=== PATIENT | female | born 1985 | race Two or more races ===

== ENCOUNTER 2016-05-11 08:34 | Emergency (ER) | payer OTHER ==
[~2016-05-11] VITALS: Ht 157.5 cm; Wt 65.8 kg
[~2016-05-11 08:34] MED LIST: DOCU-27 PO; Hydrocodone/Acetaminophen PO; METH10TA2 PO; ONDA4TAB10 SL; Polyethylene Glycol 3350 PO
[2016-05-11 08:47] VITALS: BP 129/71
[2016-05-11] MEDS ORDERED: ACETAMINOPHEN 500 MG TABLET PO ONE (09:00)
--- NOTE | 2016-05-11 09:02 | PHYS DOC ---
Past Medical History Past Medical History: UTI, Other Additional Past Medical Histor: substance abuse Past Surgical History: , Hysterectomy Alcohol Use: None Drug Use: Methamphetamine Adult General Chief Complaint Chief Complaint: BLOOD IN URINE HPI HPI Patient is a 31 year old female who presents with hematuria. Patient reports for the past few days she has been experiencing dysuria. She assumed she had a UTI, so she increased the amount of water she was drinking in an attempt to "flush it out". She felt a little better yesterday, but then this morning she noticed blood in her urine and increased dysuria. No flank or back pain. No fever. She has not taken anything for symptoms at home other than increased fluid intake. Review of Systems Review of Systems Constitutional: Denies fever or chills Respiratory: Denies cough or shortness of breath Cardiovascular: Denies chest pain GI: Denies abdominal pain, nausea, vomiting, bloody stools or diarrhea : Dysuria, hematuria Musculoskeletal: Denies back pain or joint pain Integument: Denies rash or skin lesions Neurologic: Denies headache, focal weakness or sensory changes Current Medications Current Medications Current Medications Medications (Trade) Dose Ordered Sig/John Start Time Stop Time Status Last Admin Dose Admin Acetaminophen (Tylenol) 1,000 mg 1X ONCE 05/11/16 09:00 05/11/16 09:01 DC 05/11/16 08:52 1,000 MG Trimethoprim/ Sulfamethoxazole (Bactrim Ds) 1 tab 1X ONCE 05/11/16 09:30 05/11/16 09:31 DC 05/11/16 09:28 1 TAB Allergies Allergies Allergies Coded Allergies Type Severity Reaction Last Updated Verified No Known Drug Allergies 03/30/14 No Physical Exam Physical Exam Constitutional: Well developed, well nourished, no acute distress, non-toxic appearance HENT: Normocephalic, atraumatic, bilateral external ears normal Eyes: EOMI, conjunctiva normal, no discharge Neck: Normal range of motion, no stridor Cardiovascular: Heart rate normal, regular rhythm, no murmur Lungs & Thorax: Bilateral breath sounds clear to auscultation Abdomen: Bowel sounds normal, soft, non-distended, suprapubic TTP without guarding or rebound Skin: Warm, dry, no erythema, no rash Back: No CVA tenderness Extremities: No obvious deformity, no edema Neurologic: Alert and oriented X 3, no gross deficits noted Current Patient Data Vital Signs Vital Signs Date Time Temp Pulse Resp B/P Pulse Ox O2 Delivery O2 Flow Rate FiO2 05/11/16 08:47 98.2 100 20 100 Room Air 98.2 Lab Values Laboratory Tests Test 05/11/16 09:00 Urine Collection Type Unknown Urine Color Red Urine Clarity Cloudy Urine pH 7.0 Urine Specific [place] 1.020 Urine Protein 100mg/dL (NEG-TRACE) Urine Glucose (UA) Negativemg/dL (NEG) Urine Ketones (Stick) Negativemg/dL (NEG) Urine Blood Large (NEG) Urine Nitrite Negative (NEG) Urine Bilirubin Negative (NEG) Urine Urobilinogen Dipstick 1.0mg/dL (0.2 mg/dL) Urine Leukocyte Esterase Large (NEG) Urine RBC >40/HPF (0-2) Urine WBC 11-20/HPF (0-4) Urine Bacteria 0/HPF (0-FEW) EKG EKG [] Radiology/Procedures Radiology/Procedures [] Course & Med Decision Making Course & Med Decision Making Pertinent Labs and Imaging studies reviewed. (See chart for details) Patient is 31 year old female who presents with hematuria and dysuria. Suspect UTI. Will check UA; has had hysterectomy so will not check urine preg screen. Dose of acetaminophen ordered for pain control. UA shows likely UTI. Discussed results with patient. Dose of bactrim ordered for ED. Will discharge home with rx for bactrim and pyridium, instructions for follow up, return precautions. Dragon Disclaimer Dragon Disclaimer This electronic medical record was generated, in whole or in part, using a voice recognition dictation system. Departure Departure Impression: Primary Impression: UTI (urinary tract infection) Disposition: 01 HOME, SELF-CARE Condition: STABLE Referrals: NO PCP (PCP) Patient Instructions: Urinary Tract Infection Additional Instructions: Thank you for allowing us to provide care today in the Emergency Department. Take the provided medication as directed. Schedule a follow up appointment with your primary care doctor. Return promptly to the Emergency Department if you develop any new or concerning symptoms. Scripts Phenazopyridine Hcl (Pyridium)200 Mg [id number] Mg PO TID #6 TAB Prov:SANJUANA MONROE MD 05/11/16 Sulfamethoxazole/Trimethoprim (Bactrim Ds Tablet)1 Each Tablet1 Tab PO BID #10 TAB Prov:SANJUANA MONROE MD 05/11/16 SANJUANA MONROE MD May 11, 2016 09:02
[2016-05-11 09:13] LABS: BILIRUBIN,URINE NEGATIVE (NEG); GLUCOSE,URINE NEGATIVE (NEG); NITRITE,URINE NEGATIVE (NEG); PROTEIN,URINE 100 mg/dL (NEG-TRACE)
[2016-05-11 09:18] LABS: BACTERIA,URINE 0 /HPF (0-FEW); RBC,URINE >40 /HPF (0-2)
[2016-05-11] MEDS ORDERED: PHEN-318 PO (09:27)
[2016-05-11] MEDS ORDERED: SULF1TAB24 PO (09:27)
[2016-05-11] MEDS ORDERED: SMZ/TMP 800/160MG TABLET. PO ONE (09:30)
== END 2016-05-11 09:35 | disposition home or self-care (01) ==
LOC: ER 08:34
DX: N39.0 Urinary tract infection, site not specified (principal); F15.10 Other stimulant abuse, uncomplicated; Z90.710 Acquired absence of both cervix and uterus; Z98.890 Other specified postprocedural states
CPT/HCPCS: 81001; 87086; 99284

== ENCOUNTER 2016-10-22 10:37 | Emergency (ER) | payer OTHER ==
[~2016-10-22] VITALS: Ht 157.5 cm; Wt 65.8 kg
[~2016-10-22 10:37] MED LIST changes: +DOCU-109 PO; -DOCU-27 PO; +PHEN-318 PO; +SULF1TAB24 PO
[2016-10-22 11:05] LABS: BILIRUBIN,URINE NEGATIVE (NEG); GLUCOSE,URINE NEGATIVE (NEG); NITRITE,URINE NEGATIVE (NEG); PH,URINE 6.5; PROTEIN,URINE NEGATIVE (NEG-TRACE); UROBILINOGEN,URINE 0.2 mg/dL (0.2 mg/dL)
[2016-10-22 11:08] LABS: BACTERIA,URINE MODERATE /HPF (0-FEW); RBC,URINE 0 /HPF (0-2); SQUAMOUS EPITHELIAL CELL,UR MOD /LPF; WBC,URINE OCC /HPF (0-4)
[2016-10-22 11:18] LABS: BASO % 0 % (0-3); EOS % 2 % (0-3); HEMATOCRIT 41.7 % (36.0-47.0); HEMOGLOBIN 14.1 g/dL (12.0-15.5); LYMPH # 2.7 x10^3/uL (1.0-4.8); LYMPH % 29 % (24-48); MEAN CORPUSCULAR HEMOGLOBIN 31 pg (25-35); MEAN CORPUSCULAR HGB CONC 34 g/dL (31-37); MEAN CORPUSCULAR VOLUME 91 fL (79-100); MONO % 6 % (0-9); NEUT % 63 % (31-73); PLATELET COUNT 312 x10^3/uL (140-400); RED BLOOD COUNT 4.57 x10^6/uL (3.50-5.40); RED CELL DISTRIBUTION WIDTH 13.4 % (11.5-14.5); WHITE BLOOD COUNT 9.5 x10^3/uL (4.0-11.0)
--- NOTE | 2016-10-22 11:40 | PHYS DOC ---
Past Medical History Past Medical History: Ovarian Cyst, UTI, Other Additional Past Medical Histor: substance abuse Past Surgical History: , Hysterectomy Alcohol Use: None Drug Use: None Social History Narrative: HX OF METH Adult General Chief Complaint Chief Complaint: ABDOMINAL PAIN HPI HPI Patient is a 31 year old female who presents with upper abdominal pain. It started this morning while she was doing her normal routine. It's been persistent, no radiation of pain. She has had similar symptoms in the past that resolved. Patient's had a partial hysterectomy in the past, no longer has periods. She denies any known fevers, reports some chills. Nausea without vomiting. She's had 6 C-sections, partial hysterectomy, denies other abdominal surgeries. Review of Systems Review of Systems Constitutional: Denies fever or chills [] Eyes: Denies change in visual acuity, redness, or eye pain [] HENT: Denies nasal congestion or sore throat [] Respiratory: Denies cough or shortness of breath [] Cardiovascular: No additional information not addressed in HPI [] GI: per history of present illness : Denies dysuria or hematuria [] Musculoskeletal: Denies back pain or joint pain [] Integument: Denies rash or skin lesions [] Neurologic: Denies headache, focal weakness or sensory changes [] Current Medications Current Medications Current Medications Medications (Trade) Dose Ordered Sig/John Start Time Stop Time Status Last Admin Dose Admin Fentanyl Citrate (Fentanyl 2ml Vial) 50 mcg 1X ONCE 10/22/16 11:45 10/22/16 11:46 DC 10/22/16 11:46 50 MCG Info (Do NOT chart on this entry -- for MONITORING) 1 each PRN DAILY PRN 10/22/16 12:45 10/24/16 12:44 Iohexol (Omnipaque 300 Mg/ml) 75 ml 1X ONCE 10/22/16 12:45 10/22/16 12:46 DC 10/22/16 12:55 75 ML Ketorolac Tromethamine (Toradol) 30 mg 1X ONCE 10/22/16 13:30 10/22/16 13:31 DC 10/22/16 13:27 30 MG Multi-Ingredient Mouthwash/Gargle (Gi Cocktail Single Dose) 15 ml 1X ONCE 10/22/16 11:45 10/22/16 11:46 DC 10/22/16 11:44 15 ML Allergies Allergies Allergies Coded Allergies Type Severity Reaction Last Updated Verified No Known Drug Allergies 03/30/14 No Physical Exam Physical Exam Constitutional: Well developed, well nourished, no acute distress, non-toxic appearance. [] HENT: Normocephalic, atraumatic, bilateral external ears normal, oropharynx moist, no oral exudates, nose normal. [] Eyes: PERRLA, EOMI, conjunctiva normal, no discharge. [] Neck: Normal range of motion, no tenderness, supple, no stridor. [] Cardiovascular:Heart rate regular with regular rhythm, no murmur [] Lungs & Thorax: Bilateral breath sounds clear to auscultation, no wheeze or crackles Abdomen: Bowel sounds normal, soft, nondistended, tender to palpation in the epigastric region, no guarding or peritoneal signs, negative McBurney's, negative Cordova's Skin: Warm, dry, no erythema, no rash. [] Back: No tenderness, no CVA tenderness. [] Extremities: No tenderness, no cyanosis, no clubbing, ROM intact, no edema. [] Neurologic: Alert and oriented X 3, normal motor function, normal sensory function, no focal deficits noted. [] Psychologic: Affect normal, judgement normal, mood normal. [] Current Patient Data Vital Signs Vital Signs Date Time Temp Pulse Resp B/P (MAP) Pulse Ox O2 Delivery O2 Flow Rate FiO2 10/22/16 11:46 20 97 Room Air 10/22/16 11:00 98.0 83 119/65 (83) 98.0 Lab Values Laboratory Tests Test 10/22/16 10:02 10/22/16 10:47 10/22/16 11:05 POC Urine HCG, Qualitative Hcg negative (Negative) Urine Collection Type Unknown Urine Color Yellow Urine Clarity Clear Urine pH 6.5 Urine Specific [place] 1.015 Urine Protein Negative mg/dL (NEG-TRACE) Urine Glucose (UA) Negative mg/dL (NEG) Urine Ketones (Stick) Negative mg/dL (NEG) Urine Blood Negative (NEG) Urine Nitrite Negative (NEG) Urine Bilirubin Negative (NEG) Urine Urobilinogen Dipstick 0.2 mg/dL (0.2 mg/dL) Urine Leukocyte Esterase Negative (NEG) Urine RBC 0 /HPF (0-2) Urine WBC Occ /HPF (0-4) Urine Squamous Epithelial Cells Mod /LPF Urine Bacteria Moderate /HPF (0-FEW) White Blood Count 9.5 x10^3/uL (4.0-11.0) Red Blood Count 4.57 x10^6/uL (3.50-5.40) Hemoglobin 14.1 g/dL (12.0-15.5) Hematocrit 41.7 % (36.0-47.0) Mean Corpuscular Volume 91 fL (79-100) Mean Corpuscular Hemoglobin 31 pg (25-35) Mean Corpuscular Hemoglobin Concent 34 g/dL (31-37) Red Cell Distribution Width 13.4 % (11.5-14.5) Platelet Count 312 x10^3/uL (140-400) Neutrophils (%) (Auto) 63 % (31-73) Lymphocytes (%) (Auto) 29 % (24-48) Monocytes (%) (Auto) 6 % (0-9) Eosinophils (%) (Auto) 2 % (0-3) Basophils (%) (Auto) 0 % (0-3) Neutrophils # (Auto) 5.9 x10^3uL (1.8-7.7) Lymphocytes # (Auto) 2.7 x10^3/uL (1.0-4.8) Monocytes # (Auto) 0.6 x10^3/uL (0.0-1.1) Eosinophils # (Auto) 0.2 x10^3/uL (0.0-0.7) Basophils # (Auto) 0.0 x10^3/uL (0.0-0.2) Total Bilirubin 0.4 mg/dL (0.2-1.0) Direct Bilirubin 0.1 mg/dL (0.0-0.2) Aspartate Amino Transferase (AST) 53 U/L (15-37) H Alanine Aminotransferase (ALT) 88 U/L (14-59) H Alkaline Phosphatase 79 U/L (46-116) Total Protein 7.2 g/dL (6.4-8.2) Albumin 3.5 g/dL (3.4-5.0) Lipase 155 U/L (73-393) Laboratory Tests 10/22/16 11:05 EKG EKG [] Radiology/Procedures Radiology/Procedures CT abd/pelvis: Images through the lung bases are within normal limits. The liver parenchyma is a decreased attenuation consistent with mild fatty infiltration. The spleen, pancreas, adrenal glands and kidneys are within normal limits. The abdominal aorta tapers normally. The gallbladder is well-distended. No free fluid or free air is seen within the abdomen. There is no evidence of bowel obstruction. The appendix is well-visualized and is within normal limits. Images through the pelvis demonstrate the urinary bladder distended with urine. Calcifications are seen within the pelvis consistent with phleboliths. No free fluid is seen. Minimal S shaped curvature of the thoracolumbar spine is seen. Impression: No acute abnormality is seen. [] Course & Med Decision Making Course & Med Decision Making Pertinent Labs and Imaging studies reviewed. (See chart for details) She was given IV fluids, pain medication and nausea medication. Pain did improve. Labs did not show any significant abnormality. Her pain returned and she was given additional pain medication, GI cocktail. CT of the abdomen was performed but no acute findings. Recommended patient's her Pepcid, follow up closely with primary care physician. She is given referral sheet and strict return percussions. Dragon Disclaimer Dragon Disclaimer This electronic medical record was generated, in whole or in part, using a voice recognition dictation system. Departure Departure Impression: Primary Impression: Abdominal pain Disposition: 01 HOME, SELF-CARE Condition: STABLE Referrals: NO PCP (PCP) Scripts Tramadol Hcl (TRAMADOL HCL) 50 Mg Tablet 1 TAB PO PRN Q6HRS for PAIN, #20 TAB Prov: BONIFACIO MITTAL MD 10/22/16 Famotidine (PEPCID) 20 Mg Tablet 20 MG PO BID, #30 TAB Prov: BONIFACIO MITTAL MD 10/22/16 BONIFACIO MITTAL MD Oct 22, 2016 11:40
[2016-10-22] MEDS ORDERED: LIDO:MAALOX:DONNATAL 1:1:1 15 ML SINGLE DOSE SWSW ONE (11:45)
[2016-10-22] MEDS ORDERED: fentaNYL PF VIAL 100 MCG/2 ML VIAL IV ONE (11:45)
[2016-10-22 12:43] LABS: ALBUMIN 3.5 g/dL (3.4-5.0); DIRECT BILIRUBIN 0.1 mg/dL (0.0-0.2); TOTAL BILIRUBIN 0.4 mg/dL (0.2-1.0); TOTAL PROTEIN 7.2 g/dL (6.4-8.2)
[2016-10-22] MEDS ORDERED: IOHEXOL 300 MG/ML 75 ML VIAL IV ONE (12:45)
[2016-10-22] MEDS ORDERED: CONTRAST GIVEN MC PRN (12:45)
--- NOTE | 2016-10-22 13:20 | RAD ---
CT scan of the abdomen and pelvis with contrast 10/22/2016 Clinical history: Lower abdominal pain. Technique: After the intravenous administration of 75 cc of Omnipaque 300 only, contiguous, 5 mm axial sections were obtained through the abdomen and pelvis. One or more of the following individualized dose reduction techniques were utilized for this study: 1. Automated exposure control. 2. Adjustment of the mA and/or kV according to patient size. 3. Use of iterative reconstruction technique. Findings: Comparison study is dated 04/05/2014. Images through the lung bases are within normal limits. The liver parenchyma is a decreased attenuation consistent with mild fatty infiltration. The spleen, pancreas, adrenal glands and kidneys are within normal limits. The abdominal aorta tapers normally. The gallbladder is well-distended. No free fluid or free air is seen within the abdomen. There is no evidence of bowel obstruction. The appendix is well-visualized and is within normal limits. Images through the pelvis demonstrate the urinary bladder distended with urine. Calcifications are seen within the pelvis consistent with phleboliths. No free fluid is seen. Minimal S shaped curvature of the thoracolumbar spine is seen. Impression: No acute abnormality is seen.
[2016-10-22] MEDS ORDERED: KETOROLAC TROMETHAMINE 30 MG/ML INJ. IV ONE (13:30)
[2016-10-22] MEDS ORDERED: FAMO-63 PO (13:33)
[2016-10-22] MEDS ORDERED: TRAM50TA PO (13:33)
[2016-10-22 13:45] VITALS: BP 123/71
[2016-10-23 15:19] LABS: POTASSIUM ISTAT 3.8 mmol/L (3.5-5.0)
--- NOTE | 2016-10-24 18:52 | VNOTE ---
CALL BACK NOTE CALL BACK Microbiology 10/22/16 Urine Culture - Final, Complete 10/22/16 Urine Culture Result 1 (CARLOS) - Final, Complete 10/22/16 Antimicrobic Susceptibility - Final, Complete Patient's urine culture is positive for greater than 100,000 gram-negative rods. Called patient left her VM. Information given to the geriatric nursing assistant to contact patient. DELL AYALA APRN Oct 24, 2016 18:52
== END 2016-10-22 13:50 | disposition home or self-care (01) ==
LOC: ER 10:37
DX: R10.13 Epigastric pain (principal); Z87.440 Personal history of urinary (tract) infections; Z90.711 Acquired absence of uterus with remaining cervical stump; Z98.890 Other specified postprocedural states
CPT/HCPCS: 36415; 74177; 80047; 80076; 81001; 81025; 83690; 85027; 87086; 87186; 96374; 96375; 99285; J1885; J3010; Q9967

== ENCOUNTER 2018-09-07 09:09 | Emergency (ER) | payer OTHER ==
[~2018-09-07] VITALS: Ht 157.5 cm; Wt 68.0 kg
[~2018-09-07 09:09] MED LIST changes: +FAMO-63 PO; +TRAM50TA PO
[2018-09-07 09:22] VITALS: BP 114/71
[2018-09-07] MEDS ORDERED: BUTALB/APAP/CAFEIN 50/325/40MG TABLET. PO PRN (09:45)
[2018-09-07 10:12] LABS: INFLUENZA A PATIENT NEGATIVE (NEGATIVE); INFLUENZA B PATIENT NEGATIVE (NEGATIVE)
--- NOTE | 2018-09-07 10:25 | RAD ---
Chest, PA and Lateral: Technique: PA and lateral views of the chest were obtained. History: Chest pain, cough. Comparison: 04/03/2014. Findings: The heart and pulmonary vasculature appear within normal limits. The lungs are clear. The pleural margins are clear. Impression: No acute chest process is seen. Electronically signed by: Rich Kathleen MD (09/07/2018 10:22 AM) [id number]
[2018-09-07] MEDS ORDERED: PROM118S5 PO (10:36)
[2018-09-07] MEDS ORDERED: AZIT1PAC9 PO (10:36)
--- NOTE | 2018-09-07 10:36 | PHYS DOC ---
Past Medical History Past Medical History: Ovarian Cyst, UTI, Other Additional Past Medical Histor: substance abuse Past Surgical History: , Hysterectomy Alcohol Use: None Drug Use: None Adult General Chief Complaint Chief Complaint: COUGH HPI HPI Patient is a 33 year old F who presents with cough, congestion, R ear pain and a migraine headache. Review of Systems Review of Systems Constitutional: Denies fever or chills [] HENT: Reports nasal congestion and R ear pain Respiratory: Reports cough Cardiovascular: Denies chest pain GI: Denies abdominal pain, nausea, vomiting, bloody stools or diarrhea [] : Denies dysuria or hematuria [] Musculoskeletal: Denies back pain or joint pain [] Integument: Denies rash or skin lesions [] Neurologic: Reports headache All other systems were reviewed and found to be within normal limits, except as documented in this note. Current Medications Current Medications Current Medications Medications (Trade) Dose Ordered Sig/John Start Time Stop Time Status Last Admin Dose Admin Acetaminophen/ Butalbital/ Caffeine (Fioricet) 2 tab PRN Q6HRS PRN 09/07/18 09:45 09/07/18 11:57 DC 09/07/18 09:51 2 TAB Allergies Allergies Allergies Coded Allergies Type Severity Reaction Last Updated Verified No Known Drug Allergies 03/30/14 No Physical Exam Physical Exam Constitutional: Well developed, well nourished, no acute distress, non-toxic appearance. [] HENT: Normocephalic, atraumatic. R ear erythema without bulging TM Neck: Normal range of motion, no tenderness, supple, no stridor. Cardiovascular:Heart rate regular rhythm, no murmur Lungs & Thorax: No respiratory distress, mild scattered wheezes Abdomen: Bowel sounds normal, soft, no tenderness, no masses, no pulsatile masses. [] Skin: Warm, dry, no erythema, no rash. [] Back: No tenderness, no CVA tenderness. [] Extremities: No tenderness, no cyanosis, no clubbing, ROM intact, no edema. [] Neurologic: Alert and oriented X 3, normal motor function, normal sensory function, no focal deficits noted. [] Psychologic: Affect normal, judgement normal, mood normal. [] Current Patient Data Vital Signs Vital Signs Date Time Temp Pulse Resp B/P (MAP) Pulse Ox O2 Delivery O2 Flow Rate FiO2 09/07/18 09:22 98.3 82 18 114/71 (85) 99 Room Air 98.3 Lab Values Laboratory Tests Test 09/07/18 09:44 Influenza Type A Antigen Negative (NEGATIVE) Influenza Type B Antigen Negative (NEGATIVE) EKG EKG [] Radiology/Procedures Radiology/Procedures [] Course & Med Decision Making Course & Med Decision Making Pertinent Labs and Imaging studies reviewed. (See chart for details) Pt with neg flu. She has otitis media and bronchitis and cough irritating her migraines. Will cover with abx and cough syrup with codeine. Pt to rest and push fluids and follow up with PCP. Dragon Disclaimer Dragon Disclaimer This electronic medical record was generated, in whole or in part, using a voice recognition dictation system. Departure Departure Impression: Primary Impression: Bronchitis Additional Impressions: Otitis media Headache Disposition: 01 HOME, SELF-CARE Condition: IMPROVED Referrals: NO PCP (PCP) Patient Instructions: Acute Bronchitis, [id number], Headache and Allergies, Otitis Media, Adult, [id number] Scripts Promethazine Hcl/Codeine (PROMETHAZINE-CODEINE SYRUP) 118 Ml Syrup 5 ML PO Q4-6HRS, #120 ML Prov: BONIFACIO REDD 09/07/18 Azithromycin (AZITHROMYCIN PACKET) 1 Gm Packet 1 PACKET PO ONCE, #1 PACKET Prov: BONIFACIO REDD 09/07/18 Problem Qualifiers BONIFACIO REDD Sep 07, 2018 10:36
== END 2018-09-07 10:56 | disposition home or self-care (01) ==
LOC: ER 09:09
DX: J40 Bronchitis, not specified as acute or chronic (principal); H66.91 Otitis media, unspecified, right ear; G43.909 Migraine, unspecified, not intractable, without status migrainosus; R07.89 Other chest pain; Z98.890 Other specified postprocedural states; Z90.710 Acquired absence of both cervix and uterus
CPT/HCPCS: 71046; 87804; 99285-25

== ENCOUNTER → 2020-06-01 | Outpatient (CLI) | payer MEDICAID, OTHER ==
[~2020-06-01] MED LIST changes: +AZIT1PAC9 PO; +PROM118S5 PO
--- NOTE | 2020-06-01 17:08 | RAD ---
Pelvic ultrasound dated 06/01/2020. No comparison available. Clinical data indication: Pelvic pain. FINDINGS: Transvaginal pelvic ultrasound was performed. The uterus is surgically absent. No apparent abnormalit y at the vaginal cuff. The right ovary is surgically absent. No apparent abnormality of the right adn exa. The left ovary measures 2.6 x 2.5 x 1.6 cm with normal color Doppler flow. There is a cystic structur e at the left ovary that measures up to 1.3 cm with peripheral vascularity. No apparent sialolith mas s. No free fluid. IMPRESSION: 1. No acute sonographic abnormality. Status post hysterectomy and left oophrectomy 2. Small complex right ovarian cyst. Electronically signed by: Regulo Cabrera MD (06/01/2020 5:06 PM) [id number]
== END ==
LOC: US 15:00
PROVIDERS: ATTEND Family Medicine
DX: N83.201 Unspecified ovarian cyst, right side (principal); R10.2 Pelvic and perineal pain
CPT/HCPCS: 76830; 76856

== ENCOUNTER → 2020-06-29 | Outpatient (CLI) | payer MEDICAID ==
--- NOTE | 2020-06-29 16:17 | RAD ---
INDICATION : Reason: HEP C, RUQ PAIN / Spl. Instructions: / History: COMPARISON: October 2016 TECHNIQUE: Multiple ultrasound images obtained through the abdomen in grayscale and color. FINDINGS: Liver: Echogenic with portions obscured by overlying structures. Gallbladder: Internal echoes are seen within the gallbladder. There is pain to transducer pressure in the region. Partially contracted. Wall measures up to about 3 mm. IVC: Partially distended at level of liver. Common Bile Duct: Not dilated. Pancreas: Largely obscured by bowel gas. Right Kidney: No hydronephrosis. IMPRESSION: * Partially contracted gallbladder with some internal echoes within which could be from gallbladder sludge. The patient does have pain within this region. * No common bile duct dilation. * The liver is echogenic. Nonspecific but can be seen with fatty infiltration. Electronically signed by: Rj Mooney MD (06/29/2020 4:14 PM) [id number]
== END ==
LOC: US 11:15
PROVIDERS: ATTEND Family Medicine
DX: K76.89 Other specified diseases of liver (principal); K82.0 Obstruction of gallbladder; B19.20 Unspecified viral hepatitis C without hepatic coma
CPT/HCPCS: 76705

== ENCOUNTER 2020-11-01 11:27 | Emergency (ER) | payer MEDICAID ==
[~2020-11-01] VITALS: Ht 160 cm; Wt 69.0 kg
[2020-11-01 12:30] LABS: BASO % 1 % (0-3); EOS % 1 % (0-3); HEMATOCRIT 41.3 % (36.0-47.0); LYMPH % 35 % (24-48); MEAN CORPUSCULAR HEMOGLOBIN 30 pg (25-35); MEAN CORPUSCULAR HGB CONC 34 g/dL (31-37); MEAN CORPUSCULAR VOLUME 89 fL (79-100); MONO # 0.3 x10^3/uL (0.0-1.1); MONO % 5 % (0-9); NEUT # 3.5 x10^3/uL (1.8-7.7); NEUT % 59 % (31-73); PLATELET COUNT 380 x10^3/uL (140-400); RED BLOOD COUNT 4.64 x10^6/uL (3.50-5.40); WHITE BLOOD COUNT 5.9 x10^3/uL (4.0-11.0)
[2020-11-01 12:31] LABS: BILIRUBIN,URINE NEGATIVE (NEG); CLARITY,URINE CLEAR; COLOR,URINE YELLOW; NITRITE,URINE NEGATIVE (NEG); PROTEIN,URINE NEGATIVE (NEG-TRACE)
[2020-11-01] MEDS ORDERED: ONDANSETRON PF 4 MG/2 ML VIAL. IVP ONE (12:45)
[2020-11-01] MEDS ORDERED: FAMOTIDINE 20 MG/2 ML VIAL IVP ONE (12:45)
[2020-11-01] MEDS ORDERED: KETOROLAC 15 MG/ML VIAL. IVP ONE (12:45)
[2020-11-01] MEDS ORDERED: IV NORMAL SALINE 1000ML BAG 1,000 ML IV ONE (12:45)
[2020-11-01 12:46] LABS: CALCIUM 8.9 mg/dL (8.5-10.1); CREATININE 0.7 mg/dL (0.6-1.0); GFR 95.8; POTASSIUM 3.6 mmol/L (3.5-5.1)
[2020-11-01 12:48] LABS: ALBUMIN 3.8 g/dL (3.4-5.0); MAGNESIUM 2.2 mg/dL (1.8-2.4); TOTAL BILIRUBIN 0.5 mg/dL (0.2-1.0); TOTAL PROTEIN 7.5 g/dL (6.4-8.2)
[2020-11-01 13:05] LABS: BACTERIA,URINE MODERATE /HPF (0-FEW); RBC,URINE 0 /HPF (0-2)
--- NOTE | 2020-11-01 13:22 | RAD ---
EXAM: ULTRASOUND ABDOMEN LIMITED CLINICAL HISTORY: Reason: RUQ pain, eval for cholecystitis / Spl. Instructions: / History: COMPARISON: None available. TECHNIQUE: Limited ultrasound examination of the right upper quadrant of the abdomen was performed. FINDINGS: The liver length measures 15 cm. The common bile duct is 2.2 mm in transverse dimension. Mild increas ed echogenicity identified in the liver likely hepatic steatosis. The gallbladder wall thickness levi ures 1.4 mm. Minimal echogenicity identified in the gallbladder likely sludge. Examination is positiv e for ultrasonographic evidence of Cordova's sign. The pancreas is not well-visualized due to bowel ga s. The right kidney measures 10.5 x 5.2 x 4.8 cm. IMPRESSION: 1. Mild sludge in the gallbladder 2. Examination is positive for ultrasonographic evidence of Cordova's sign. Obvious cholecystitis is n ot evident on the images however if clinical suspicion persists consider HIDA scan. Electronically signed by: Rich Kathleen MD (11/01/2020 1:19 PM) [id number]
[2020-11-01 13:32] VITALS: BP 131/70
[2020-11-01] MEDS ORDERED: FAMO-63 PO (14:02)
[2020-11-01] MEDS ORDERED: ONDA4TAB12 PO (14:02)
[2020-11-01] MEDS ORDERED: HYOS0.1265 SL (14:02)
--- NOTE | 2020-11-01 14:03 | PHYS DOC ---
Past Medical History Past Medical History: Ovarian Cyst, UTI, Other Additional Past Medical Histor: substance abuse Past Surgical History: , Hysterectomy Smoking Status: Current Some Day Smoker Alcohol Use: None Drug Use: Methadone General Adult EDM: Chief Complaint: ABDOMINAL PAIN HPI: HPI: 35-year-old female presents with abdominal cramping discomfort to upper quadrant with associated nausea and vomiting x 1-2 week. Patient reports decreased appetite. Denies fever or chills. Denies trauma. Reports food makes symptoms worse. Denies dysuria or hematuria. Review of Systems: Review of Systems: Constitutional: Denies fever or chills Eyes: Denies redness or eye pain HENT: Denies nasal congestion or sore throat Respiratory: Denies cough or shortness of breath Cardiovascular: Denies chest pain or palpitations GI: Reports upper quadrant abdominal pain, nausea, and vomiting and decreased appetite : Denies dysuria or hematuria Musculoskeletal: Denies back pain or joint pain Integument: Denies rash or skin lesions Neurologic: Denies headache, focal weakness or sensory changes Complete systems were reviewed and found to be within normal limits, except as documented in this note. Heart Score: C/O Chest Pain: N/A Current Medications: Current Medications Medications (Trade) Dose Ordered Sig/John Start Time Stop Time Status Last Admin Dose Admin Famotidine (Pepcid Vial) 20 mg 1X ONCE 11/01/20 12:45 11/01/20 12:46 DC 11/01/20 12:31 20 MG Ketorolac Tromethamine (Toradol 15mg Vial) 15 mg 1X ONCE 11/01/20 12:45 11/01/20 12:46 DC 11/01/20 12:30 15 MG Ondansetron HCl (Zofran) 4 mg 1X ONCE 11/01/20 12:45 11/01/20 12:46 DC 11/01/20 12:31 4 MG Sodium Chloride 1,000 ml @ 1,000 mls/hr 1X ONCE 11/01/20 12:45 11/01/20 13:44 DC 11/01/20 12:32 1,000 MLS/HR Allergies: Allergies: Allergies Coded Allergies Type Severity Reaction Last Updated Verified No Known Drug Allergies 03/30/14 No Physical Exam: PE: Constitutional: Well developed, well nourished, no acute distress, non-toxic appearance HENT: Normocephalic, atraumatic Eyes: Conjunctiva normal, no discharge Neck: Normal range of motion, supple Lungs & Thorax: No respiratory distress, equal chest rise and fall Abdomen: Soft, RUQ tenderness, no distention, mild guarding noted Skin: Warm, dry, no erythema, no rash Back: No tenderness, no CVA tenderness Extremities: No tenderness, ROM intact, no edema Neurologic: Alert and oriented X 3, no focal deficits noted Psychologic: Affect normal, judgment normal Current Patient Data: Labs: Laboratory Tests Test 11/01/20 12:10 11/01/20 12:15 11/01/20 12:21 Urine Collection Type Unknown Urine Color Yellow Urine Clarity Clear Urine pH 7.0 (<5.0-8.0) Urine Specific [place] 1.015 (1.000-1.030) Urine Protein Negative mg/dL (NEG-TRACE) Urine Glucose (UA) Negative mg/dL (NEG) Urine Ketones (Stick) Negative mg/dL (NEG) Urine Blood Negative (NEG) Urine Nitrite Negative (NEG) Urine Bilirubin Negative (NEG) Urine Urobilinogen Dipstick 1.0 mg/dL (0.2 mg/dL) Urine Leukocyte Esterase Trace (NEG) Urine RBC 0 /HPF (0-2) Urine WBC 11-20 /HPF (0-4) Urine Squamous Epithelial Cells Mod /LPF Urine Bacteria Moderate /HPF (0-FEW) POC Urine HCG, Qualitative Hcg negative (Negative) White Blood Count 5.9 x10^3/uL (4.0-11.0) Red Blood Count 4.64 x10^6/uL (3.50-5.40) Hemoglobin 14.0 g/dL (12.0-15.5) Hematocrit 41.3 % (36.0-47.0) Mean Corpuscular Volume 89 fL (79-100) Mean Corpuscular Hemoglobin 30 pg (25-35) Mean Corpuscular Hemoglobin Concent 34 g/dL (31-37) Red Cell Distribution Width 13.0 % (11.5-14.5) Platelet Count 380 x10^3/uL (140-400) Neutrophils (%) (Auto) 59 % (31-73) Lymphocytes (%) (Auto) 35 % (24-48) Monocytes (%) (Auto) 5 % (0-9) Eosinophils (%) (Auto) 1 % (0-3) Basophils (%) (Auto) 1 % (0-3) Neutrophils # (Auto) 3.5 x10^3/uL (1.8-7.7) Lymphocytes # (Auto) 2.0 x10^3/uL (1.0-4.8) Monocytes # (Auto) 0.3 x10^3/uL (0.0-1.1) Eosinophils # (Auto) 0.0 x10^3/uL (0.0-0.7) Basophils # (Auto) 0.0 x10^3/uL (0.0-0.2) Sodium Level 141 mmol/L (136-145) Potassium Level 3.6 mmol/L (3.5-5.1) Chloride Level 105 mmol/L (98-107) Carbon Dioxide Level 27 mmol/L (21-32) Anion Gap 9 (6-14) Blood Urea Nitrogen 8 mg/dL (7-20) Creatinine 0.7 mg/dL (0.6-1.0) Estimated GFR (Cockcroft-Gault) 95.8 BUN/Creatinine Ratio 11 (6-20) Glucose Level 110 mg/dL (70-99) H Calcium Level 8.9 mg/dL (8.5-10.1) Magnesium Level 2.2 mg/dL (1.8-2.4) Total Bilirubin 0.5 mg/dL (0.2-1.0) Aspartate Amino Transferase (AST) 23 U/L (15-37) Alanine Aminotransferase (ALT) 33 U/L (14-59) Alkaline Phosphatase 91 U/L (46-116) Total Protein 7.5 g/dL (6.4-8.2) Albumin 3.8 g/dL (3.4-5.0) Albumin/Globulin Ratio 1.0 (1.0-1.7) Lipase 83 U/L (73-393) Laboratory Tests 11/01/20 12:21 Laboratory Tests 11/01/20 12:21 Vital Signs: Vital Signs Date Time Temp Pulse Resp B/P (MAP) Pulse Ox O2 Delivery O2 Flow Rate FiO2 11/01/20 12:07 98.1 72 12 142/83 (102) 100 Room Air 98.1 EKG: EKG: [] Radiology/Procedures: Radiology/Procedures: PROCEDURE: ABDOMEN LTD EXAM: ULTRASOUND ABDOMEN LIMITED CLINICAL HISTORY: Reason: RUQ pain, eval for cholecystitis / Spl. Instructions: / History: COMPARISON: None available. TECHNIQUE: Limited ultrasound examination of the right upper quadrant of the abdomen was performed. FINDINGS: The liver length measures 15 cm. The common bile duct is 2.2 mm in transverse dimension. Mild increased echogenicity identified in the liver likely hepatic steatosis. The gallbladder wall thickness measures 1.4 mm. Minimal echogenicity identified in the gallbladder likely sludge. Examination is positive for ultrasonographic evidence of Cordova's sign. The pancreas is not well-visualized due to bowel gas. The right kidney measures 10.5 x 5.2 x 4.8 cm. IMPRESSION: 1. Mild sludge in the gallbladder 2. Examination is positive for ultrasonographic evidence of Cordova's sign. Obvious cholecystitis is not evident on the images however if clinical suspicion persists consider HIDA scan. Electronically signed by: Rich Kathleen MD (11/01/2020 1:19 PM) [id number] Course & Med Decision Making: Course & Med Decision Making Pertinent Labs and Imaging studies reviewed. (See chart for details) Patient presents with upper abdominal discomfort with associated nausea and vomiting has been ongoing for the past 1 to 2 weeks. Pain/nausea addressed. IV fluid hydration given. Labs obtained and posted to chart. LFT and lipase within normal limits. Ultrasound with signs of gallbladder sludge without other signs of acute cholecystitis. Patient stable for discharge with outpatient follow-up with PCP/ general surgery. General surgery referral provided. Discussed findings and plan with patient, who acknowledges understanding and agreement. Maya Disclaimer: Maya Disclaimer: This electronic medical record was generated, in whole or in part, using a voice recognition dictation system. Departure Departure Impression: Primary Impression: Biliary colic Disposition: HOME / SELF CARE / HOMELESS Condition: STABLE Referrals: JANUARY MANUEL MD (PCP) BELGICA QUINONES MD Patient Instructions: Cholelithiasis, [id number], Fat and Cholesterol Control Diet, [id number] Additional Instructions: Increase fluid hydration. Scripts Ondansetron (ONDANSETRON ODT) 4 Mg Tab.rapdis 1 TAB PO PRN Q6-8HRS PRN for NAUSEA, #16 TAB Prov: JANUARY MEYERS DO 11/01/20 Famotidine (PEPCID) 20 Mg Tablet 20 MG PO BID, #20 TAB Prov: JANUARY MEYERS DO 11/01/20 Hyoscyamine Sulfate (LEVSIN-SL) 0.125 Mg Tab.subl 0.125 MG SL Q6HRS PRN for PAIN, #14 TAB Prov: JANUARY MEYERS DO 11/01/20 JANUARY MEYERS DO Nov 01, 2020 14:02
== END 2020-11-01 14:15 | disposition home or self-care (01) ==
LOC: ER 11:27
DX: K80.50 Calculus of bile duct without cholangitis or cholecystitis without obstruction (principal); R11.2 Nausea with vomiting, unspecified; F17.200 Nicotine dependence, unspecified, uncomplicated; Z87.440 Personal history of urinary (tract) infections; Z98.890 Other specified postprocedural states; Z90.710 Acquired absence of both cervix and uterus
CPT/HCPCS: 36415; 76705; 80053; 81001; 81025; 83690; 83735; 85025; 87086; 96361; 96374; 96375; 99284; J1885; J2405; J3490; J7030; 87077; 87186

== ENCOUNTER 2020-11-06 22:12 | Emergency (ER) | payer MEDICAID ==
[~2020-11-06] VITALS: Ht 157.5 cm; Wt 68.0 kg
[~2020-11-06 22:12] MED LIST changes: +HYOS0.1265 SL; +ONDA4TAB12 PO
[2020-11-06 22:42] LABS: BASO # 0.1 x10^3/uL (0.0-0.2); BASO % 1 % (0-3); EOS # 0.2 x10^3/uL (0.0-0.7); EOS % 2 % (0-3); HEMATOCRIT 40.3 % (36.0-47.0); HEMOGLOBIN 13.4 g/dL (12.0-15.5); LYMPH % 35 % (24-48); MEAN CORPUSCULAR HEMOGLOBIN 30 pg (25-35); MEAN CORPUSCULAR HGB CONC 33 g/dL (31-37); MEAN CORPUSCULAR VOLUME 89 fL (79-100); MONO # 0.9 x10^3/uL (0.0-1.1); MONO % 8 % (0-9); NEUT # 6.2 x10^3/uL (1.8-7.7); NEUT % 55 % (31-73); PLATELET COUNT 328 x10^3/uL (140-400); RED BLOOD COUNT 4.51 x10^6/uL (3.50-5.40); RED CELL DISTRIBUTION WIDTH 13.2 % (11.5-14.5); WHITE BLOOD COUNT 11.3 x10^3/uL (4.0-11.0)
[2020-11-06 22:43] LABS: BILIRUBIN,URINE NEGATIVE (NEG); CLARITY,URINE CLOUDY; COLOR,URINE YELLOW; NITRITE,URINE POSITIVE (NEG); PROTEIN,URINE 30 mg/dL (NEG-TRACE)
[2020-11-06 22:55] LABS: CALCIUM 8.3 mg/dL (8.5-10.1); CREATININE 0.9 mg/dL (0.6-1.0); GFR 71.7; POTASSIUM 3.5 mmol/L (3.5-5.1)
[2020-11-06] MEDS ORDERED: MORPHINE SULFATE 4 MG/ML INJ. IV ONE (23:00)
[2020-11-06] MEDS ORDERED: MORPHINE SULFATE 4 MG/ML INJ. ONE (23:00)
[2020-11-06 23:01] LABS: ALBUMIN 3.4 g/dL (3.4-5.0); TOTAL BILIRUBIN 0.4 mg/dL (0.2-1.0); TOTAL PROTEIN 6.8 g/dL (6.4-8.2)
--- NOTE | 2020-11-06 23:03 | PHYS DOC ---
Past Medical History Past Medical History: Ovarian Cyst, UTI, Other Additional Past Medical Histor: substance abuse Past Surgical History: , Hysterectomy Smoking Status: Never Smoker Alcohol Use: Occasionally Drug Use: Methadone General Adult EDM: Chief Complaint: ABDOMINAL PAIN HPI: HPI: Patient is a 35 year old female who presented to ER due to mid abdominal pain that been going on for a week. Patient was seen in ER on November 01, 2020, for the same problem, ultrasound show sludging of her gallbladder, patient was discharged home, she was referred to a general surgeon for follow-up. Patient is scheduled to see the general surgeon tomorrow at 1:30 PM but she decided come in today because the pain is intolerable . patient denies any cough or fever, no chest pain, no trouble breathing. Patient also complained of urinary frequency. Review of Systems: Review of Systems: Constitutional: Denies fever or chills. [] Eyes: Denies change in visual acuity. [] HENT: Denies nasal congestion or sore throat. [] Respiratory: Denies cough or shortness of breath. [] Cardiovascular: Denies chest pain or edema. [] GI: Positive for abdominal pain, no nausea vomiting, no diarrhea. : Denies dysuria. [] Musculoskeletal: Denies back pain or joint pain. [] Integument: Denies rash. [] Neurologic: Denies headache, focal weakness or sensory changes. [] Endocrine: Denies polyuria or polydipsia. [] Lymphatic: Denies swollen glands. [] Psychiatric: Denies depression or anxiety. [] Heart Score: C/O Chest Pain: N/A Risk Factors: Risk Factors: DM, Current or recent (<one month) smoker, HTN, HLP, family history of CAD, obesity. Risk Scores: Score 0 - 3: 2.5% MACE over next 6 weeks - Discharge Home Score 4 - 6: 20.3% MACE over next 6 weeks - Admit for Clinical Observation Score 7 - 10: 72.7% MACE over next 6 weeks - Early Invasive Strategies Current Medications: Current Medications Medications (Trade) Dose Ordered Sig/John Start Time Stop Time Status Last Admin Dose Admin Morphine Sulfate (Morphine Sulfate) 4 mg 1X ONCE 11/06/20 23:00 11/06/20 23:01 Allergies: Allergies: Allergies Coded Allergies Type Severity Reaction Last Updated Verified No Known Drug Allergies 03/30/14 No Physical Exam: PE: Constitutional: Well developed, well nourished, no acute distress, non-toxic appearance. [] HENT: Normocephalic, atraumatic, bilateral external ears normal, oropharynx moist, no oral exudates, nose normal. [] Eyes: PERRLA, EOMI, conjunctiva normal, no discharge. [] Neck: Normal range of motion, no tenderness, supple, no stridor. [] Cardiovascular:Heart rate regular rhythm, no murmur [] Lungs & Thorax: Bilateral breath sounds clear to auscultation [] Abdomen: Bowel sounds normal, soft, There is tenderness to palpation in epigast cortney area, no masses, no pulsatile masses. [] Skin: Warm, dry, no erythema, no rash. [] Back: No tenderness, no CVA tenderness. [] Extremities: No tenderness, no cyanosis, no clubbing, ROM intact, no edema. [] Neurologic: Alert and oriented X 3, normal motor function, normal sensory function, no focal deficits noted. [] Psychologic: Affect normal, judgement normal, mood normal. [] Current Patient Data: Labs: Laboratory Tests Test 11/06/20 22:18 11/06/20 22:23 11/06/20 22:34 Urine Collection Type Unknown Urine Color Yellow Urine Clarity Cloudy Urine pH 7.0 Urine Specific [place] 1.010 Urine Protein 30 mg/dL Urine Glucose (UA) Negative mg/dL Urine Ketones (Stick) Negative mg/dL Urine Blood Moderate Urine Nitrite Positive Urine Bilirubin Negative Urine Urobilinogen Dipstick 1.0 mg/dL Urine Leukocyte Esterase Large Urine RBC 20-40 /HPF Urine WBC Tntc /HPF Urine Squamous Epithelial Cells Mod /LPF Urine Bacteria Moderate /HPF Bedside Urine HCG, Qualitative Hcg negative White Blood Count 11.3 x10^3/uL Red Blood Count 4.51 x10^6/uL Hemoglobin 13.4 g/dL Hematocrit 40.3 % Mean Corpuscular Volume 89 fL Mean Corpuscular Hemoglobin 30 pg Mean Corpuscular Hemoglobin Concent 33 g/dL Red Cell Distribution Width 13.2 % Platelet Count 328 x10^3/uL Neutrophils (%) (Auto) 55 % Lymphocytes (%) (Auto) 35 % Monocytes (%) (Auto) 8 % Eosinophils (%) (Auto) 2 % Basophils (%) (Auto) 1 % Neutrophils # (Auto) 6.2 x10^3/uL Lymphocytes # (Auto) 4.0 x10^3/uL Monocytes # (Auto) 0.9 x10^3/uL Eosinophils # (Auto) 0.2 x10^3/uL Basophils # (Auto) 0.1 x10^3/uL Sodium Level 144 mmol/L Potassium Level 3.5 mmol/L Chloride Level 106 mmol/L Carbon Dioxide Level 29 mmol/L Anion Gap 9 Blood Urea Nitrogen 7 mg/dL Creatinine 0.9 mg/dL Estimated GFR (Cockcroft-Gault) 71.7 BUN/Creatinine Ratio 8 Glucose Level 92 mg/dL Calcium Level 8.3 mg/dL Total Bilirubin 0.4 mg/dL Aspartate Amino Transf (AST/SGOT) 15 U/L Alanine Aminotransferase (ALT/SGPT) 28 U/L Alkaline Phosphatase 90 U/L Total Protein 6.8 g/dL Albumin 3.4 g/dL Albumin/Globulin Ratio 1.0 Lipase 82 U/L Current Medications Medications (Trade) Dose Ordered Sig/John Route PRN Reason Start Time Stop Time Status Last Admin Dose Admin Morphine Sulfate (Morphine Sulfate) 4 mg 1X ONCE IV 11/06/20 23:00 11/06/20 23:01 DC 11/06/20 23:01 Morphine Sulfate (Morphine Sulfate) 4 mg STK-MED ONCE .ROUTE 11/06/20 23:00 11/06/20 23:01 DC Iohexol (Omnipaque 300 Mg/ml) 75 ml 1X ONCE IV 11/06/20 23:15 11/06/20 23:16 DC 11/06/20 23:20 Info (CONTRAST GIVEN -- Rx MONITORING) 1 each PRN DAILY PRN MC SEE COMMENTS 11/06/20 23:15 11/08/20 23:14 Ceftriaxone Sodium (Rocephin) 1 gm 1X ONCE IVP 11/06/20 23:15 11/06/20 23:16 DC 11/06/20 23:54 Laboratory Tests Test 11/06/20 22:23 11/06/20 22:34 POC Urine HCG, Qualitative Hcg negative (Negative) White Blood Count 11.3 x10^3/uL (4.0-11.0) H Red Blood Count 4.51 x10^6/uL (3.50-5.40) Hemoglobin 13.4 g/dL (12.0-15.5) Hematocrit 40.3 % (36.0-47.0) Mean Corpuscular Volume 89 fL (79-100) Mean Corpuscular Hemoglobin 30 pg (25-35) Mean Corpuscular Hemoglobin Concent 33 g/dL (31-37) Red Cell Distribution Width 13.2 % (11.5-14.5) Platelet Count 328 x10^3/uL (140-400) Neutrophils (%) (Auto) 55 % (31-73) Lymphocytes (%) (Auto) 35 % (24-48) Monocytes (%) (Auto) 8 % (0-9) Eosinophils (%) (Auto) 2 % (0-3) Basophils (%) (Auto) 1 % (0-3) Neutrophils # (Auto) 6.2 x10^3/uL (1.8-7.7) Lymphocytes # (Auto) 4.0 x10^3/uL (1.0-4.8) Monocytes # (Auto) 0.9 x10^3/uL (0.0-1.1) Eosinophils # (Auto) 0.2 x10^3/uL (0.0-0.7) Basophils # (Auto) 0.1 x10^3/uL (0.0-0.2) Sodium Level 144 mmol/L (136-145) Potassium Level 3.5 mmol/L (3.5-5.1) Chloride Level 106 mmol/L (98-107) Carbon Dioxide Level 29 mmol/L (21-32) Anion Gap 9 (6-14) Blood Urea Nitrogen 7 mg/dL (7-20) Creatinine 0.9 mg/dL (0.6-1.0) Estimated GFR (Cockcroft-Gault) 71.7 BUN/Creatinine Ratio 8 (6-20) Glucose Level 92 mg/dL (70-99) Calcium Level 8.3 mg/dL (8.5-10.1) L Total Bilirubin Pending Aspartate Amino Transferase (AST) Pending Alanine Aminotransferase (ALT) Pending Alkaline Phosphatase Pending Total Protein Pending Albumin Pending Albumin/Globulin Ratio Pending Lipase Pending Laboratory Tests 11/06/20 22:34 Laboratory Tests 11/06/20 22:34 Vital Signs: Vital Signs Date Time Temp Pulse Resp B/P (MAP) Pulse Ox O2 Delivery O2 Flow Rate FiO2 11/06/20 22:27 99.3 79 20 133/76 (95) 100 Room Air 99.3 EKG: EKG: [] Radiology/Procedures: Radiology/Procedures: [] [address] [place] [address] IMAGING REPORT Signed PATIENT: GRANT GAINES I ACCOUNT: [id number] : 1985 LOCATION: ER AGE: 35 SEX: F EXAM STATUS: REG ER ORD. PHYSICIAN: JONNA CLEARY DO REASON: ABDOMINAL PAIN, NAUSEA, VOMITING PROCEDURE: CT ABD PELV W/ IV CONTRST ONLY CT ABDOMEN+PELVIS W History: ABDOMINAL PAIN, NAUSEA, VOMITING Comparison: CT 10/22/2016 Technique: After administration of intravenous contrast, helical CT of the abdomen and pelvis was performed from the lung bases through the ischial tuberosities. Coronal and sagittal reconstructions were obtained. 75 mL of Omnipaque 350 were used. One or more of the following dose reduction techniques were utilized: Automated exposure control (AEC), Adjustment of mA and/or kV according to patient size, Use of iterative reconstruction technique such as ASiR, CT scan done according to ALARA and image gently/image wisely Abdomen Findings: The visualized lung bases are clear. The liver, gallbladder, pancreas, spleen, and bilateral adrenal glands are normal. Symmetric renal enhancement. There is no focal renal mass. There is no hydrone phrosis. Bilateral ureteral urothelial hyperemia. The visualized loops of small bowel are normal. The visualized loops of large bowel are normal. There is no evidence of bowel obstruction. Appendix is normal. There is no free fluid. There is no mesenteric or retroperitoneal adenopathy. The abdominal aorta is normal in caliber. Pelvis Findings: Urinary bladder is normal. Hysterectomy. No pelvic free fluid. There is no pelvic or inguinal adenopathy. There is no acute bony abnormality. IMPRESSION: Bilateral ureteral urothelial hyperemia, which might be seen with an ascending urinary tract infection. Consider urinalysis. Electronically signed by: Emmie Joshi MD (11/06/2020 11:40 PM) [facility] DICTATED and SIGNED BY: EMMIE JOSHI MD DATE: 11/06/20 [id number] 0 Course & Med Decision Making: Course & Med Decision Making Pertinent Labs and Imaging studies reviewed. (See chart for details) Patient is a 35-year-old female who presented to ER due to abdominal pain and recurrent urination. Patient was found to have UTI, patient had a CT scan done also so evidence of UTI, her liver function tests were normal. Patient was seen here recently for abdominal pain, ultrasound did not show any gallstones. Patient is scheduled to see a general surgeon today at 1:30 PM about her abdominal pain. Patient will discharge home with antibiotic for UTI, she was stable. Dragon Disclaimer: Dragon Disclaimer: This electronic medical record was generated, in whole or in part, using a voice recognition dictation system. Departure Departure Impression: Primary Impression: UTI (lower urinary tract infection) Additional Impression: Abdominal pain Disposition: HOME / SELF CARE / HOMELESS Condition: IMPROVED Referrals: JANUARY MANUEL MD (PCP) Follow-up with your doctor today as scheduled. Patient Instructions: Abdominal Pain, Urinary Tract Infection Additional Instructions: Thank you for visiting our Emergency Department. We appreciate you trusting us with your care. If any additional problems come up don't hesitate to return to visit us. Please follow up with your primary care provider so they can plan additional care if needed and know about the problem that you had. If symptoms worsen come back to the Emergency Department. Any concerning symptoms that start such as chest pain, shortness of air, weakness or numbness on one side of the body, running high fevers or any other concerning symptoms return to the ER. Scripts Naproxen Sodium (ANAPROX DS) 550 Mg Tablet 1 TAB PO BID PRN for PAIN for 15 Days, #30 TAB 0 Refills Prov: JONNA CLEARY DO 11/07/20 Ciprofloxacin Hcl (CIPRO) 500 Mg Tablet 1 TAB PO BID for 7 Days, #14 TAB 0 Refills Prov: JONNA CLEARY DO 11/07/20 JNONA CLEARY DO Nov 06, 2020 23:03
[2020-11-06 23:08] LABS: BACTERIA,URINE MODERATE /HPF (0-FEW); RBC,URINE 20-40 /HPF (0-2); WBC,URINE TNTC /HPF (0-4)
[2020-11-06] MEDS ORDERED: cefTRIAXone IV Push 1 GM VIAL. IVP ONE (23:15)
[2020-11-06] MEDS ORDERED: IOHEXOL 300 MG/ML 100ML VIAL. IV ONE (23:15)
[2020-11-06] MEDS ORDERED: CONTRAST GIVEN. MC PRN (23:15)
--- NOTE | 2020-11-06 23:43 | RAD ---
CT ABDOMEN+PELVIS W History: ABDOMINAL PAIN, NAUSEA, VOMITING Comparison: CT 10/22/2016 Technique: After administration of intravenous contrast, helical CT of the abdomen and pelvis was per formed from the lung bases through the ischial tuberosities. Coronal and sagittal reconstructions wer e obtained. 75 mL of Omnipaque 350 were used. One or more of the following dose reduction techniques were utilized: Automated exposure control (AEC), Adjustment of mA and/or kV according to patient size , Use of iterative reconstruction technique such as ASiR, CT scan done according to ALARA and image g ently/image wisely Abdomen Findings: The visualized lung bases are clear. The liver, gallbladder, pancreas, spleen, and bilateral adrenal glands are normal. Symmetric renal enhancement. There is no focal renal mass. There is no hydronephrosis. Bilateral uret eral urothelial hyperemia. The visualized loops of small bowel are normal. The visualized loops of large bowel are normal. There is no evidence of bowel obstruction. Appendix is normal. There is no free fluid. There is no mesenteric or retroperitoneal adenopathy. The abdominal aorta is normal in caliber. Pelvis Findings: Urinary bladder is normal. Hysterectomy. No pelvic free fluid. There is no pelvic or inguinal adenopa thy. There is no acute bony abnormality. IMPRESSION: Bilateral ureteral urothelial hyperemia, which might be seen with an ascending urinary tract infectio n. Consider urinalysis. Electronically signed by: Ramesh Joshi MD (11/06/2020 11:40 PM) [facility]
[2020-11-07] MEDS ORDERED: KETOROLAC 30 MG/ML VIAL. IVP ONE (00:30)
[2020-11-07] MEDS ORDERED: CIPR500T94 PO (01:02)
[2020-11-07] MEDS ORDERED: NAPR-682 PO (01:03)
[2020-11-07 01:10] VITALS: BP 127/66
[2020-11-09] MEDS ORDERED: OXYC1TAB15 PO (08:24)
== END 2020-11-07 01:15 | disposition home or self-care (01) ==
LOC: ER 22:12
DX: N39.0 Urinary tract infection, site not specified (principal); Z90.710 Acquired absence of both cervix and uterus
CPT/HCPCS: 36415; 74177; 80053; 81001; 81025; 83690; 85025; 87086; 96374; 96375; 99285; J0696; J1885; J2270; Q9967

== ENCOUNTER → 2020-11-08 | Outpatient (CLI) | payer MEDICAID ==
[2020-11-07 01:10] VITALS: BP 127/66
[~2020-11-08] MED LIST changes: +CIPR500T94 PO; +NAPR-682 PO; +OXYC1TAB15 PO
== END ==
LOC: LAB 11:56
PROVIDERS: ATTEND Surgery
DX: K80.10 Calculus of gallbladder with chronic cholecystitis without obstruction (principal); Z01.812 Encounter for preprocedural laboratory examination; Z20.822 Contact with and (suspected) exposure to COVID-19
CPT/HCPCS: U0003

== ENCOUNTER 2020-11-09 06:31 | Day surgery (SDC) | payer MEDICAID ==
[~2020-11-09] VITALS: Ht 162.6 cm; Wt 68.0 kg
[~2020-11-09 06:31] MED LIST changes: +ACETAMINOPHEN 500 MG TABLET PO PRN; -OXYC1TAB15 PO; +ceFAZolin SODIUM IV Push 1 GM VIAL. IVP PRN
[2020-11-09 06:53] VITALS: BP 124/79
[2020-11-09] MEDS ORDERED: IOHEXOL 300 MG/ML 50 ML VIAL. ONE (07:06)
[2020-11-09] MEDS ORDERED: BUPIVACAINE-EPI 0.25%-1:200000 MPF 30 ML VIAL. ONE (07:06)
[2020-11-09] MEDS ORDERED: SURGICEL HEMOSTAT 4X8 EACH. ONE (07:06)
[2020-11-09] MEDS ORDERED: ROCURONIUM 50 MG/5 ML VIAL. ONE (07:32)
[2020-11-09] MEDS ORDERED: MIDAZOLAM HCL/PF 2 MG/2 ML VIAL. ONE (07:32)
[2020-11-09] MEDS ORDERED: LIDOCAINE 2% PF 5 ML VIAL. ONE (07:58)
[2020-11-09] MEDS ORDERED: KETOROLAC 30 MG/ML VIAL. ONE (07:58)
[2020-11-09] MEDS ORDERED: PROPOFOL 10 MG/ML (20ML) VIAL. IV ONE (07:58)
[2020-11-09] MEDS ORDERED: ONDANSETRON PF 4 MG/2 ML VIAL. ONE (07:58)
[2020-11-09] MEDS ORDERED: DEXAMETHASONE SOD PHOS 4 MG/ML VIAL ONE (07:58)
[2020-11-09] MEDS ORDERED: SEVOFLURANE 31 TO 60 MINUTES. IH ONE (07:59)
[2020-11-09] MEDS ORDERED: NEOSTIGMINE METHYLSULFATE 5 MG/5 ML SYRINGE. ONE (08:02)
[2020-11-09] MEDS ORDERED: GLYCOPYRROLATE 1 MG/5 ML VIAL. ONE (08:02)
[2020-11-09] MEDS ORDERED: fentaNYL PF VIAL 100 MCG/2 ML VIAL ONE ×2 (08:14→08:38)
--- NOTE | 2020-11-09 08:21 | PDOC4 ---
Operative Note Operative Note Date: November 092020 at 819 Preoperative diagnosis: Chronic cholecystitis cholelithiasis Postoperative diagnosis: Same Procedure: Laparoscopic cholecystectomy with fluorescence cholangiography Specimen: Gallbladder Surgeon: Ramez Dictation: Patient is 35-year-old female with complaints of right upper quadrant abdominal pain ultrasound showing gallstones. Procedure of laparoscopic cholecystectomy was explained to the patient detail risk benefits were also discussed including bleeding infection injury to intra-abdominal contents possible necessitating further open operations alternatives to this procedure also discussed with the patient who seemed to understand and gave a verbal written consent to have the procedure performed. Patient was taken to the operating room placed in the supine position general anesthesia was initiated once patient was sleeping intubated her abdomen was prepped and draped usual sterile fashion using ChloraPrep. Area just below the umbilicus was injected with quarter percent Marcaine with epinephrine incision was made 11 blade scalpel a varies needle was placed within the abdomen creating pneumoperitoneum once this was complete the millimeter port was placed and a 5 mm camera is placed within the abdomen which was inspected no other abnormalities were noted. 5 mm port was placed in the epigastrium a 5 mm port was placed in the right midabdomen and a 5 mm port was placed in the right lateral abdomen the dome of the gallbladder is grasped retracted cephalad the infundibulum the gallbladder is grasped retracted laterally exposing the triangle adherent tissue the triangle were taken down exposing the cystic duct and cystic artery at this point fluorescence was visualized showing outline of the cystic duct into the common bile duct. The cystic duct was doubly clipped and transected as well as the cystic artery. The gallbladder was taken off the liver with hook electrocautery placed in Endo Catch bag and removed and the umbilicus right upper quadrant was irrigated suctioned dry hemostasis deemed be appropriate the pneumoperitoneum was reduced all ports were removed the fascial defect at the umbilicus was closed with a [id number] 0 Vicryl suture and the skin was reapproximated all port sites for subcuticular Monocryl Mastisol Steri-Strips and island dressings were applied. Patient was awakened and extubated in the operating room taken to recovery in stable condition all sponge instrument needle counts listed as correct estimated blood loss 10 mL. BELGICA QUINONES MD Nov 09, 2020 08:21
[2020-11-09] MEDS ORDERED: OXYC1TAB15 PO (08:24)
--- NOTE | 2020-11-09 08:26 | DISCH ---
DISCHARGE INSTRUCTIONS Condition on Discharge Condition on Discharge: Stable Activity After Discharge Activity Instructions for Disc: Avoid exertion Other activity instructions: No lifting more than 20 pounds for 2 weeks Diet after Discharge Diet after Discharge: Low Fat Wound Incision Care Other wound/incision instructi: May shower in 24 hours Contacting the DRChely after DC Call your doctor for: If your condition worsens Follow-Up Follow up with: Dr. Quinones in 2 weeks Treatment/Equipment after DC Adaptive Equipment Issued: None BELGICA QUINONES MD Nov 09, 2020 08:26
[2020-11-09] MEDS ORDERED: PROCHLORPERAZINE 10 MG/2 ML VIAL. IVP PRN (08:45)
[2020-11-09] MEDS ORDERED: fentaNYL PF VIAL 100 MCG/2 ML VIAL IVP PRN (08:45)
[2020-11-09] MEDS ORDERED: IV RINGERS,LACTATED 1000ML 1,000 ML IV SCH (08:45)
[2020-11-09] MEDS ORDERED: oxyCODONE/APAP 5/325 1 TAB TABLET PO ONE (08:45)
[2020-11-09] MEDS: fentaNYL PF VIAL 100 MCG/2 ML VIAL IVP PRN ×2 (08:49→08:59)
[2020-11-09] MEDS ORDERED: MORPHINE SULFATE 2 MG/ML INJ. ONE (08:56)
[2020-11-09] MEDS: MORPHINE SULFATE 2 MG/ML INJ. IVP PRN ×2 (09:01→09:13)
[2020-11-09] MEDS ORDERED: HYDROmorphone 2 MG/ML VIAL ONE (09:04)
[2020-11-09] MEDS: HYDROmorphone 2 MG/ML VIAL IVP PRN ×4 (09:13→10:00)
[2020-11-09] MEDS ORDERED: PROCHLORPERAZINE 10 MG/2 ML VIAL. ONE (09:18)
[2020-11-09] MEDS ORDERED: MEPERIDINE PF 25 MG/ML VIAL. ONE (09:56)
[2020-11-09] MEDS: MEPERIDINE PF 25 MG/ML VIAL. IV PRN ×2 (10:00→10:25)
[2020-11-09 10:15] VITALS: BP 139/84
== END 2020-11-09 10:50 | disposition home or self-care (01) ==
LOC: SURG 06:31
PROVIDERS: ATTEND Surgery
DX: K80.10 Calculus of gallbladder with chronic cholecystitis without obstruction (principal); F41.9 Anxiety disorder, unspecified; F32.9 Major depressive disorder, single episode, unspecified; Z87.440 Personal history of urinary (tract) infections; Z90.710 Acquired absence of both cervix and uterus; Z98.890 Other specified postprocedural states; Z79.899 Other long term (current) drug therapy; Z72.89 Other problems related to lifestyle
CPT/HCPCS: 47562; 88304; A4364; A4930; A6219; J0690; J0780; J1100; J1170; J1885; J2175; J2250; J2270; J2405; J2704; J2710; J3010; J3490; A4452; A4657; Q9967